=== PATIENT | male | born 1995 | race Caucasian/White ===

== ENCOUNTER 2020-09-15 11:32 | Emergency (ER) | payer OTHER, BC ==
[~2020-09-15] VITALS: Ht 180.3 cm; Wt 102.5 kg
[2020-09-15 11:45] VITALS: Ht 180.3 cm; Wt 102.5 kg
[2020-09-15] MEDS ORDERED: ULTRAM50 MG PO (12:02)
[2020-09-15] MEDS ORDERED: ANTIBIOTIC O500 U/GM TOP (12:02)
[2020-09-15 12:29] VITALS: BP 135/72
== END 2020-09-15 12:29 | disposition home or self-care (01) ==
LOC: ED 11:32
DX: T23.202A Burn of second degree of left hand, unspecified site, initial encounter (principal); X08.8XXA Exposure to other specified smoke, fire and flames, initial encounter; Y93.89 Activity, other specified; Y92.89 Other specified places as the place of occurrence of the external cause; Y99.8 Other external cause status